=== PATIENT | male | born 1985 | race Hispanic/Latino ===

== ENCOUNTER 2019-12-12 10:19 | Day surgery (SDC) | payer OTHER ==
[2019-12-06 14:36] LABS: APPEARANCE,URINE Clear (CLEAR); BILIRUBIN,URINE Negative (NEGATIVE); COLOR,URINE Yellow (YELLOW); GLUCOSE, URINE (UA) Negative (NEGATIVE); KETONES,URINE Negative (NEGATIVE); LEUKOCYTE ESTERASE ,URINE Trace (NEGATIVE); NITRATE,URINE Negative (NEGATIVE); OCCULT BLOOD,URINE Trace (NEGATIVE); PROTEIN,URINE Negative (NEGATIVE); UROBILINOGEN,URINE 0.2 mg/dL (0.2-1.0)
[2019-12-06 15:01] LABS: BACTERIA,URINE Few /HPF (None Seen); RBC,URINE 0-1 /HPF (0-1); SQUAMOUS EPITHELIAL CELL,UR Few /HPF (0-2); WBC,URINE 0-1 /HPF (0-1)
[2019-12-06 15:02] LABS: AMORPHOUS SEDIMENT,UR Few /LPF (None Seen); MUCUS,URINE Few LPF (None Seen)
[2019-12-11 10:35] VITALS: BP 145/72
[~2019-12-12] VITALS: Ht 182.9 cm; Wt 128.4 kg
[2019-12-12] VITALS (16 sets, daily range): BP systolic 109–153; BP diastolic 62–82
[~2019-12-12 10:19] MED LIST: CEFTRIAXONE SODIUM 1 GM IVP SCH; GENTAMICIN 80 MG/NS 100 ML PB 100 ML IV SCH; NITR100C4 PO
[2019-12-12] MEDS ORDERED: LACTATED RINGERS 1000ML 1,000 ML IV ONE (10:42)
[2019-12-12] MEDS ORDERED: IOHEXOL-350 50ML VIAL IV ONE (12:06)
[2019-12-12] MEDS ORDERED: SUCCINYLCHOLINE 200MG/10ML SYR ONE (13:53)
[2019-12-12] MEDS ORDERED: PROPOFOL 10 MG/ML 20ML VIAL IV ONE (13:53)
[2019-12-12] MEDS ORDERED: FENTANYL CITRATE PF 50 MCG/1 ML 2ML VIAL ONE (13:53)
[2019-12-12] MEDS ORDERED: LIDOCAINE PF 2% 5ML ABBOJECT ONE (13:53)
[2019-12-12] MEDS ORDERED: MIDAZOLAM HCL 1 MG/ML 2ML VIAL ONE (14:16)
[2019-12-12] MEDS ORDERED: ROCURONIUM 10MG/1ML SYR 10 MG/ML ML ONE (14:16)
--- NOTE | 2019-12-12 18:00 | NUR ---
PT DISCHARGED HOME. PT HAS PENILE OPSITE DRESSING ON THAT IS HOLD STENT STRING IN PLACE. PT INSTRUCTED NOT TO PULL ON STENT STRING. HE HAS VOIDED WITH NO STONES VISIBLE-PINK TINGED URINE. GIVEN URINE STRAINER AND TAUGHT ON IT S USE. PRINTED AND VERBAL INSTRUCTION GIVEN TO PATIENT AT BEDSIDE WITH . VERBALIZE UNDERSTANDING. TO CAR VIA WHEELCHAIR
== END 2019-12-12 18:00 | disposition home or self-care (01) ==
LOC: DAH 10:19
PROVIDERS: ATTEND Urology
DX: N20.1 Calculus of ureter (principal); N40.1 Benign prostatic hyperplasia with lower urinary tract symptoms; N13.8 Other obstructive and reflux uropathy; F17.210 Nicotine dependence, cigarettes, uncomplicated; Z20.828 Contact with and (suspected) exposure to other viral communicable diseases; Z87.440 Personal history of urinary (tract) infections
CPT/HCPCS: 36415 ×2; 52356; 74420; 80048; 81001; 82360; 87088; A4215; A4216; A4221; A4222; A4223 ×3; A4354; A4358; A4600; A4606; A4663; A6204; A6260; C1758; C1769; C1894 ×2; C2617; C9803; J0330; J0696; J2001; J2250; J2704; J3010; J7120 ×2; U0003; J1580; Q9967

== ENCOUNTER 2021-07-01 21:00 | Inpatient (IN) | payer OTHER ==
[~2021-07-01] VITALS: Ht 182.9 cm; Wt 138.8 kg
[~2021-07-01 21:00] MED LIST changes: -CEFTRIAXONE SODIUM 1 GM IVP SCH; -GENTAMICIN 80 MG/NS 100 ML PB 100 ML IV SCH
[2021-07-01 21:58] LABS: BASOPHILS % (AUTO) 0.2 % (0.0-5.0); EOSINOPHILS % (AUTO) 0.2 % (0.0-8.0); LYMPHOCYTES % (AUTO) 3.7 % (21.0-51.0); MEAN CORPUSCULAR HEMOGLOBIN 29.7 pg (27.0-33.0); MEAN CORPUSCULAR HGB CONC 33.2 g/dL (32.0-36.0); MEAN CORPUSCULAR VOLUME 89.5 fL (79-99); NEUTROPHILS % (AUTO) 94.3 % (40.0-77.0); PLATELET COUNT (AUTO) 185 K/uL (130-400); RED BLOOD CELL COUNT(AUTO) 4.58 MIL/uL (4.50-6.20); RED CELL DISTRIBUTION WIDTH 12.1 % (11.0-15.5); WHITE BLOOD COUNT (AUTO) 13.4 K/uL (4.8-10.8)
[2021-07-01 21:59] LABS: APPEARANCE,URINE Clear (CLEAR); BILIRUBIN,URINE Negative (NEGATIVE); COLOR,URINE Dark Yellow (YELLOW); GLUCOSE, URINE (UA) Negative (NEGATIVE); KETONES,URINE Trace mg/dL (NEGATIVE); LEUKOCYTE ESTERASE ,URINE Small (NEGATIVE); NITRATE,URINE Negative (NEGATIVE); OCCULT BLOOD,URINE Negative (NEGATIVE); PH,URINE 5.5 (5.0-8.0); PROTEIN,URINE Negative (NEGATIVE)
[2021-07-01] MEDS ORDERED: ACETAMINOPHEN 500 MG TABLET PO ONE (22:00)
[2021-07-01] MEDS ORDERED: 0.9%NACL 1000ML 1,000 ML IV SCH (22:00)
[2021-07-01] MEDS ORDERED: ONDANSETRON 4MG INJ IVP ONE (22:00)
[2021-07-01] MEDS ORDERED: KETOROLAC 30MG VIAL (30MG/ML) IVP ONE (22:00)
[2021-07-01 22:04] LABS: BACTERIA,URINE Few /HPF (None Seen); RBC,URINE 0-1 /HPF (0-1)
[2021-07-01 22:05] LABS: SQUAMOUS EPITHELIAL CELL,UR Few /HPF (0-2)
[2021-07-01] MEDS: TAMSULOSIN HCL 0.4 MG CAP.ER.24H PO SCH (22:05)
[2021-07-01 22:15] LABS: ALBUMIN 3.3 g/dL (3.5-5.0); CREATININE 2.1 mg/dL (0.5-1.5)
[2021-07-01 22:19] LABS: BILIRUBIN,TOTAL 0.8 mg/dL (0.2-1.0)
[2021-07-01] MEDS ORDERED: CEFTRIAXONE 1G VIAL IVP ONE (22:30)
[2021-07-01] MEDS ORDERED: POTASSIUM BICARB/CIT AC 25 MEQ TABLET.EFF PO ONE (22:30)
[2021-07-01] MEDS ORDERED: ONDANSETRON 4MG INJ IV PRN (23:00)
[2021-07-01] MEDS ORDERED: POTASSIUM CHLORIDE 20MEQ/100ML 100 ML IV PRN (23:00)
[2021-07-01] MEDS ORDERED: LIDOCAINE HCL-MPF 1% 2ML VIAL IV PRN (23:00)
[2021-07-01] MEDS ORDERED: MORPHINE 2 MG SYG IV PRN (23:00)
[2021-07-01] MEDS ORDERED: 0.9%NACL 1000ML 2,328 ML IV ONE (23:00)
[2021-07-01] MEDS ORDERED: MORPHINE 4 MG SYG IV PRN (23:00)
[2021-07-01] MEDS ORDERED: ACETAMINOPHEN 650 MG SUPPOSITORY RC PRN (23:00)
[2021-07-01] MEDS: ZOSYN 3.375GM+NS 50ML 50 ML IV SCH (23:48)
[2021-07-01] MEDS ORDERED: POTASSIUM BICARB/CIT AC 25 MEQ TABLET.EFF ONE ×2 (23:50→23:53)
[2021-07-02] MEDS: 0.9%NACL 1000ML 1,000 ML IV SCH ×2 (00:52→08:36)
[2021-07-02 03:15] VITALS: BP 130/80
[2021-07-02] MEDS ORDERED: TAMS-1 PO (03:30)
[2021-07-02 05:04] LABS: BASOPHILS % (AUTO) 0.3 % (0.0-5.0); EOSINOPHILS % (AUTO) 2.1 % (0.0-8.0); LYMPHOCYTES % (AUTO) 5.5 % (21.0-51.0); MEAN CORPUSCULAR VOLUME 90.9 fL (79-99); MONOCYTES % (AUTO) 3.7 % (3.0-13.0); NEUTROPHILS % (AUTO) 87.6 % (40.0-77.0); PLATELET COUNT (AUTO) 170 K/uL (130-400); RED CELL DISTRIBUTION WIDTH 12.2 % (11.0-15.5); WHITE BLOOD COUNT (AUTO) 14.4 K/uL (4.8-10.8)
[2021-07-02 05:15] LABS: CREATININE 1.8 mg/dL (0.5-1.5); INR 1.08 (0.85-1.15); MAGNESIUM 1.5 mg/dL (1.80-2.40); PHOSPHORUS 2.9 mg/dL (2.5-4.9); POTASSIUM 4.5 mmol/L (3.5-5.1); PROTHROMBIN TIME 11.7 SEC (9.6-11.6)
[2021-07-02 05:16] LABS: PARTIAL THROMBOPLASTIN TIME 30.9 SEC (26.3-35.5)
[2021-07-02 08:00] VITALS: BP 129/64
[2021-07-02] MEDS: TAMSULOSIN HCL 0.4 MG CAP.ER.24H PO SCH ×2 (08:36→18:18)
[2021-07-02] MEDS: FAMOTIDINE 20MG VIAL IV SCH (08:36)
[2021-07-02] MEDS: ENOXAPARIN SODIUM 40 MG/0.4 ML SYRINGE SQ SCH (08:37)
[2021-07-02] MEDS: ZOSYN 3.375GM+NS 50ML 50 ML IV SCH ×3 (08:37→20:57)
[2021-07-02] MEDS ORDERED: ACETAMINOPHEN 325 MG TAB ONE (10:36)
[2021-07-02 12:00] VITALS: BP 110/61
[2021-07-02 16:00] VITALS: BP 118/64
[2021-07-02] MEDS ORDERED: MAGNESIUM 2GM PREMIX 50ML 50 ML IV PRN (18:30)
[2021-07-02 20:00] VITALS: BP 142/77
[2021-07-02] MEDS: ACETAMINOPHEN 325 MG TAB PO PRN (20:58)
[2021-07-03] VITALS (7 sets, daily range): BP systolic 110–171; BP diastolic 66–92
[2021-07-03] MEDS: FAMOTIDINE 20MG VIAL IV SCH (07:45)
[2021-07-03] MEDS: ENOXAPARIN SODIUM 40 MG/0.4 ML SYRINGE SQ SCH (07:45)
[2021-07-03] MEDS: ZOSYN 3.375GM+NS 50ML 50 ML IV SCH ×2 (07:45→14:41)
[2021-07-03] MEDS: ACETAMINOPHEN 325 MG TAB PO PRN ×2 (07:45→15:59)
[2021-07-03] MEDS: TAMSULOSIN HCL 0.4 MG CAP.ER.24H PO SCH ×2 (07:46→21:10)
[2021-07-03 11:01] LABS: HEMATOCRIT 38.8 % (42-54); MEAN CORPUSCULAR HEMOGLOBIN 30.3 pg (27.0-33.0); MEAN CORPUSCULAR HGB CONC 34.3 g/dL (32.0-36.0); MEAN CORPUSCULAR VOLUME 88.4 fL (79-99); RED BLOOD CELL COUNT(AUTO) 4.39 MIL/uL (4.50-6.20); RED CELL DISTRIBUTION WIDTH 12.5 % (11.0-15.5); WHITE BLOOD COUNT (AUTO) 15.6 K/uL (4.8-10.8)
[2021-07-03 11:18] LABS: CREATININE 1.9 mg/dL (0.5-1.5); POTASSIUM 3.5 mmol/L (3.5-5.1)
[2021-07-03] MEDS: 0.9%NACL 1000ML 1,000 ML IV SCH ×2 (15:06→15:07)
[2021-07-03] MEDS ORDERED: KETOROLAC 15MG/ML VIAL (15MG/ML) IM PRN (17:00)
[2021-07-03] MEDS: MEROPENEM 1 GM VIAL IVP SCH (18:58)
[2021-07-04] VITALS: BP 120/70
[2021-07-04] MEDS: 0.9%NACL 1000ML 1,000 ML IV SCH ×3 (01:00→21:00)
[2021-07-04] MEDS: MEROPENEM 1 GM VIAL IVP SCH ×2 (02:09→10:25)
[2021-07-04 04:00] VITALS: BP 137/76
[2021-07-04 04:43] LABS: BASOPHILS % (AUTO) 0.3 % (0.0-5.0); EOSINOPHILS % (AUTO) 2.1 % (0.0-8.0); HEMATOCRIT 37.1 % (42-54); LYMPHOCYTES % (AUTO) 11.3 % (21.0-51.0); MEAN CORPUSCULAR HEMOGLOBIN 29.6 pg (27.0-33.0); MEAN CORPUSCULAR HGB CONC 32.9 g/dL (32.0-36.0); MONOCYTES % (AUTO) 5.6 % (3.0-13.0); PLATELET COUNT (AUTO) 133 K/uL (130-400); RED BLOOD CELL COUNT(AUTO) 4.12 MIL/uL (4.50-6.20); RED CELL DISTRIBUTION WIDTH 12.7 % (11.0-15.5); WHITE BLOOD COUNT (AUTO) 13.1 K/uL (4.8-10.8)
[2021-07-04 04:57] LABS: HEMOGLOBIN A1C 5.8 % (4.0-6.0)
[2021-07-04 05:02] LABS: CREATININE 1.9 mg/dL (0.5-1.5)
[2021-07-04 08:00] VITALS: BP 154/93
[2021-07-04] MEDS: FAMOTIDINE 20MG VIAL IV SCH (09:35)
[2021-07-04] MEDS: ENOXAPARIN SODIUM 40 MG/0.4 ML SYRINGE SQ SCH (09:35)
[2021-07-04] MEDS: TAMSULOSIN HCL 0.4 MG CAP.ER.24H PO SCH (09:35)
[2021-07-04 12:00] VITALS: BP 156/89
[2021-07-04 16:00] VITALS: BP 147/93
[2021-07-04] MEDS: CEFTRIAXONE 2GM VIAL IVP SCH (17:35)
[2021-07-04] MEDS ORDERED: IBUPROFEN 400 MG TABLET ONE (18:18)
[2021-07-04] MEDS: IBUPROFEN 800 MG TAB PO PRN (18:27)
[2021-07-04 20:00] VITALS: BP 148/73
[2021-07-05] VITALS: BP 131/67
[2021-07-05 04:00] VITALS: BP 126/75
[2021-07-05 05:35] LABS: BASOPHILS % (AUTO) 0.4 % (0.0-5.0); HEMATOCRIT 37.9 % (42-54); LYMPHOCYTES % (AUTO) 21.6 % (21.0-51.0); MEAN CORPUSCULAR HEMOGLOBIN 30.1 pg (27.0-33.0); MEAN CORPUSCULAR VOLUME 88.6 fL (79-99); MONOCYTES % (AUTO) 9.6 % (3.0-13.0); NEUTROPHILS % (AUTO) 62.5 % (40.0-77.0); PLATELET COUNT (AUTO) 162 K/uL (130-400); RED BLOOD CELL COUNT(AUTO) 4.28 MIL/uL (4.50-6.20); RED CELL DISTRIBUTION WIDTH 13.2 % (11.0-15.5); WHITE BLOOD COUNT (AUTO) 10.6 K/uL (4.8-10.8)
[2021-07-05 06:05] LABS: CREATININE 1.6 mg/dL (0.5-1.5); POTASSIUM 3.9 mmol/L (3.5-5.1)
[2021-07-05 07:41] VITALS: BP 140/75
[2021-07-05] MEDS: 0.9%NACL 1000ML 1,000 ML IV SCH (08:09)
[2021-07-05] MEDS: ENOXAPARIN SODIUM 40 MG/0.4 ML SYRINGE SQ SCH (08:09)
[2021-07-05] MEDS: FAMOTIDINE 20MG VIAL IV SCH (08:09)
[2021-07-05] MEDS: TAMSULOSIN HCL 0.4 MG CAP.ER.24H PO SCH (08:09)
[2021-07-05] MEDS: IBUPROFEN 800 MG TAB PO PRN (10:50)
[2021-07-05 10:52] VITALS: BP 163/101
[2021-07-05] MEDS ORDERED: ACETAMINOPHEN 325 MG TAB PO PRN (11:00)
[2021-07-05] MEDS ORDERED: CEFU500T67 PO (12:04)
[2021-07-05] MEDS: CEFTRIAXONE 2GM VIAL IVP SCH (12:44)
== END 2021-07-05 14:30 | disposition home or self-care (01) | DRG 872 ==
LOC: EDH 21:00 → EDHIP 22:47 → 4BH 07-02 02:40
PROVIDERS: ADMIT Internal Medicine; ATTEND Internal Medicine
DX: A41.51 Sepsis due to Escherichia coli [E. coli] (principal); N17.9 Acute kidney failure, unspecified; Z68.41 Body mass index [BMI] 40.0-44.9, adult; N13.6 Pyonephrosis; E87.6 Hypokalemia; E66.01 Morbid (severe) obesity due to excess calories; K59.00 Constipation, unspecified; G47.00 Insomnia, unspecified; G47.33 Obstructive sleep apnea (adult) (pediatric); I10 Essential (primary) hypertension; G47.30 Sleep apnea, unspecified; Z87.442 Personal history of urinary calculi; E86.0 Dehydration; E11.9 Type 2 diabetes mellitus without complications; Z79.899 Other long term (current) drug therapy; F17.210 Nicotine dependence, cigarettes, uncomplicated; Z98.52 Vasectomy status
CPT/HCPCS: 36415; 74176; 80048; 80053; 81001; 83036; 83605; 83690; 83735; 84100; 85025; 85027; 85610; 85730; 86850; 86900; 86901; 87040; 87077; 87088; 87186; G0378; J0696; J1650; J1885; J2185; J2405; J2543; J3475; J3480; J3490; J7030